=== PATIENT | male | born 1940 | race Caucasian/White ===

== ENCOUNTER 2021-03-22 10:26 | Outpatient (REF) | payer SELFPAY ==
[2021-03-22 11:14] LABS: INTERNATIONAL NORM RATIO 1.8 (0.9-1.1); Prothrombin Time 20.3 SEC (9.9-13.0)
== END 2021-03-22 10:27 | disposition home or self-care (01) ==
LOC: HO.MMNH1L 10:26
PROVIDERS: Visit Provider Family Medicine
DX: I48.91 Unspecified atrial fibrillation (principal)
CPT/HCPCS: 36415; 85610

== ENCOUNTER 2021-04-07 00:56 | Outpatient (REF) | payer SELFPAY | END 2021-04-07 00:57 | disposition home or self-care (01) | LOC: HO.MMNH1L 00:56 | PROVIDERS: Visit Provider Family Medicine | DX: Z13.89 Encounter for screening for other disorder (principal) ==

== ENCOUNTER 2021-10-29 06:22 | Outpatient (REF) | payer SELFPAY ==
[2021-10-29 06:50] LABS: INTERNATIONAL NORM RATIO 1.6 (0.9-1.1); Prothrombin Time 18.4 SEC (9.9-13.0)
== END 2021-10-29 06:23 | disposition home or self-care (01) ==
LOC: HO.MMNH1L 06:22
PROVIDERS: Visit Provider Family Medicine
DX: I48.20 Chronic atrial fibrillation, unspecified (principal); I50.20 Unspecified systolic (congestive) heart failure
CPT/HCPCS: 36415; 85610

== ENCOUNTER 2021-11-24 06:52 | Outpatient (REF) | payer MEDICARE, SELFPAY | END 2021-11-24 06:53 | disposition home or self-care (01) | LOC: HO.MMNH1L 06:52 | PROVIDERS: Visit Provider Family Medicine | DX: Z13.89 Encounter for screening for other disorder (principal) ==

== ENCOUNTER 2021-12-08 07:20 | Outpatient (REF) | payer MEDICARE, SELFPAY | END 2021-12-08 07:21 | disposition home or self-care (01) | LOC: HO.MMNH1L 07:20 | PROVIDERS: Visit Provider Family Medicine | DX: Z13.89 Encounter for screening for other disorder (principal) ==

== ENCOUNTER 2022-02-09 07:28 | Outpatient (REF) | payer MEDICARE, SELFPAY | END 2022-02-09 07:29 | disposition home or self-care (01) | LOC: HO.MMNH1L 07:28 | PROVIDERS: Visit Provider Family Medicine | DX: Z13.89 Encounter for screening for other disorder (principal) ==

== ENCOUNTER 2022-02-23 06:23 | Outpatient (REF) | payer MEDICARE, SELFPAY ==
[2022-02-23 06:49] LABS: Hematocrit 38.5 % (42.0-52.0); Hemoglobin 12.3 g/dl (14.0-18.0); Mean Corpuscular HGB Conc 31.9 g/dl (31.0-36.0); Mean Corpuscular Hemoglobin 31.8 pg (27.0-33.0); Mean Corpuscular Volume 99.5 fL (80.0-98.0); Mean Platelet Volume 9.6 fL (9.4-12.4); Platelet Count 245 X10*3/uL (160-400); Red Blood Count 3.87 X10*6/uL (4.60-5.80); Red Cell Distribution Width 13.7 % (11.0-16.0); White Blood Count 6.6 X10*3/uL (4.8-10.8)
[2022-02-23 06:50] LABS: Prothrombin Time 24.2 SEC (10.0-13.1)
[2022-02-23 07:38] LABS: Anion Gap 17 (12-20); Blood Urea Nitrogen 16 mg/dL (9-16); Calcium 8.4 mg/dL (8.4-10.2); Carbon Dioxide 30 mmol/L (22-29); Chloride 98 mmol/L (96-108); Estimated Glomerular Filt Rate > 60; Glucose Random 92 mg/dL (60-115); Potassium 3.9 mmol/L (3.3-5.1); Sodium 141 mmol/L (135-145)
== END 2022-02-23 06:24 | disposition home or self-care (01) ==
LOC: HO.MMNH1L 06:23
PROVIDERS: Visit Provider Family Medicine
DX: I48.20 Chronic atrial fibrillation, unspecified (principal); I50.20 Unspecified systolic (congestive) heart failure; Z91.81 History of falling
CPT/HCPCS: 36415; 80048; 85027; 85610

== ENCOUNTER 2022-03-02 05:52 | Outpatient (REF) | payer MEDICARE, SELFPAY | END 2022-03-02 05:53 | disposition home or self-care (01) | LOC: HO.MMNH1L 05:52 | PROVIDERS: Visit Provider Family Medicine | DX: Z13.89 Encounter for screening for other disorder (principal) ==

== ENCOUNTER 2022-03-03 05:41 | Outpatient (REF) | payer MEDICARE, SELFPAY ==
[2022-03-03 05:44] LABS: MANUAL DIFF FLAG NO
[2022-03-03 06:01] LABS: Basophils Percent Auto 0.6 % (0-2); Eosinophils Absolute Auto 0.3 X10*3/uL (0.0-0.4); Eosinophils Percent Auto 4.2 % (0-4); Hematocrit 36.6 % (42.0-52.0); Hemoglobin 11.7 g/dl (14.0-18.0); Imm Gran Abs Auto 0.06 X10*3/uL (0.00-0.03); Imm Gran Pct Auto 0.9 % (0.0-0.4); Lymphocytes Absolute Auto 0.5 X10*3/uL (1.2-4.9); Lymphocytes Percent Auto 7.3 % (20-40); Mean Corpuscular Hemoglobin 31.9 pg (27.0-33.0); Mean Corpuscular Volume 99.7 fL (80.0-98.0); Mean Platelet Volume 9.8 fL (9.4-12.4); Monocytes Absolute Auto 0.9 X10*3/uL (0.1-1.2); Monocytes Percent Auto 13.2 % (2-11); Neutrophils Absolute Auto 4.9 x10*3/uL (2.0-8.3); Neutrophils Percent Auto 73.8 % (45-73); Platelet Count 162 X10*3/uL (160-400); Red Blood Count 3.67 X10*6/uL (4.60-5.80); Red Cell Distribution Width 14.1 % (11.0-16.0); White Blood Count 6.6 X10*3/uL (4.8-10.8)
[2022-03-03 06:17] LABS: Anion Gap 16 (12-20); Blood Urea Nitrogen 13 mg/dL (9-16); Calcium 8.4 mg/dL (8.4-10.2); Carbon Dioxide 30 mmol/L (22-29); Chloride 100 mmol/L (96-108); Estimated Glomerular Filt Rate > 60; Glucose Random 138 mg/dL (60-115); Potassium 3.8 mmol/L (3.3-5.1); Sodium 142 mmol/L (135-145)
[2022-03-03 06:26] LABS: INTERNATIONAL NORM RATIO 1.5 (0.9-1.1); Prothrombin Time 17.5 SEC (10.0-13.1)
== END 2022-03-03 05:42 | disposition home or self-care (01) ==
LOC: HO.MMNH1L 05:41
PROVIDERS: Visit Provider Family Medicine
DX: I34.0 Nonrheumatic mitral (valve) insufficiency (principal); I48.20 Chronic atrial fibrillation, unspecified
CPT/HCPCS: 36415; 80048; 85025; 85610

== ENCOUNTER 2022-03-09 06:14 | Outpatient (REF) | payer MEDICARE, SELFPAY ==
[2022-03-09 06:31] LABS: MANUAL DIFF FLAG NO
[2022-03-09 06:47] LABS: Basophils Percent Auto 0.5 % (0-2); Eosinophils Absolute Auto 0.3 X10*3/uL (0.0-0.4); Eosinophils Percent Auto 4.9 % (0-4); Hematocrit 36.9 % (42.0-52.0); Hemoglobin 11.7 g/dl (14.0-18.0); Imm Gran Abs Auto 0.03 X10*3/uL (0.00-0.03); Imm Gran Pct Auto 0.5 % (0.0-0.4); Lymphocytes Absolute Auto 0.7 X10*3/uL (1.2-4.9); Lymphocytes Percent Auto 11.4 % (20-40); Mean Corpuscular HGB Conc 31.7 g/dl (31.0-36.0); Mean Corpuscular Hemoglobin 31.8 pg (27.0-33.0); Mean Corpuscular Volume 100.3 fL (80.0-98.0); Mean Platelet Volume 9.9 fL (9.4-12.4); Monocytes Absolute Auto 0.8 X10*3/uL (0.1-1.2); Monocytes Percent Auto 14.1 % (2-11); Neutrophils Percent Auto 68.6 % (45-73); Platelet Count 159 X10*3/uL (160-400); Red Blood Count 3.68 X10*6/uL (4.60-5.80); Red Cell Distribution Width 13.9 % (11.0-16.0); White Blood Count 5.9 X10*3/uL (4.8-10.8)
[2022-03-09 07:02] LABS: INTERNATIONAL NORM RATIO 1.7 (0.9-1.1); Prothrombin Time 19.9 SEC (10.0-13.1)
[2022-03-09 07:09] LABS: Anion Gap 18 (12-20); Blood Urea Nitrogen 13 mg/dL (9-16); Calcium 8.1 mg/dL (8.4-10.2); Carbon Dioxide 24 mmol/L (22-29); Chloride 102 mmol/L (96-108); Estimated Glomerular Filt Rate > 60; Glucose Random 83 mg/dL (60-115); Potassium 4.2 mmol/L (3.3-5.1); Sodium 140 mmol/L (135-145)
== END 2022-03-09 06:15 | disposition home or self-care (01) ==
LOC: HO.MMNH1L 06:14
PROVIDERS: Visit Provider Family Medicine
DX: I48.20 Chronic atrial fibrillation, unspecified (principal); I50.20 Unspecified systolic (congestive) heart failure; Z91.81 History of falling
CPT/HCPCS: 36415; 80048; 85025; 85610

== ENCOUNTER 2022-03-16 05:44 | Outpatient (REF) | payer MEDICARE, SELFPAY ==
[2022-03-16 05:43] LABS: MANUAL DIFF FLAG NO
[2022-03-16 06:16] LABS: INTERNATIONAL NORM RATIO 1.6 (0.9-1.1); Prothrombin Time 19.2 SEC (10.0-13.1)
[2022-03-16 06:28] LABS: Basophils Absolute Auto 0.1 X10*3/uL (0.0-0.2); Basophils Percent Auto 0.8 % (0-2); Eosinophils Absolute Auto 0.3 X10*3/uL (0.0-0.4); Eosinophils Percent Auto 5.3 % (0-4); Hemoglobin 12.7 g/dl (14.0-18.0); Imm Gran Abs Auto 0.03 X10*3/uL (0.00-0.03); Imm Gran Pct Auto 0.5 % (0.0-0.4); Lymphocytes Absolute Auto 0.9 X10*3/uL (1.2-4.9); Lymphocytes Percent Auto 14.2 % (20-40); Mean Corpuscular HGB Conc 31.8 g/dl (31.0-36.0); Mean Corpuscular Hemoglobin 31.5 pg (27.0-33.0); Mean Corpuscular Volume 99.3 fL (80.0-98.0); Mean Platelet Volume 9.7 fL (9.4-12.4); Monocytes Absolute Auto 0.8 X10*3/uL (0.1-1.2); Monocytes Percent Auto 13.1 % (2-11); Neutrophils Absolute Auto 4.2 x10*3/uL (2.0-8.3); Neutrophils Percent Auto 66.1 % (45-73); Platelet Count 206 X10*3/uL (160-400); Red Blood Count 4.03 X10*6/uL (4.60-5.80); Red Cell Distribution Width 14.1 % (11.0-16.0); White Blood Count 6.4 X10*3/uL (4.8-10.8)
[2022-03-16 07:08] LABS: Anion Gap 21 (12-20); Blood Urea Nitrogen 15 mg/dL (9-16); Calcium 8.6 mg/dL (8.4-10.2); Carbon Dioxide 26 mmol/L (22-29); Chloride 98 mmol/L (96-108); Estimated Glomerular Filt Rate > 60; Glucose Random 100 mg/dL (60-115); Potassium 3.8 mmol/L (3.3-5.1); Sodium 141 mmol/L (135-145)
== END 2022-03-16 05:45 | disposition home or self-care (01) ==
LOC: HO.MMNH1L 05:44
PROVIDERS: Visit Provider Family Medicine
DX: I48.20 Chronic atrial fibrillation, unspecified (principal); I50.20 Unspecified systolic (congestive) heart failure; Z91.81 History of falling
CPT/HCPCS: 36415; 80048; 85025; 85610

== ENCOUNTER 2022-03-21 11:35 | Outpatient (REF) | payer MEDICARE, SELFPAY ==
[2022-03-21 11:57] LABS: Appearance Urine Clear; Color Urine Yellow; Glucose Urine UA Negative (Negative); Leukocyte Esterase Urine Negative (Negative); Nitrite Urine Negative (Negative); PH 6.5 (5.0-9.0); Urine Blood Negative (Negative); Urine Ketones Negative (Negative); Urine Protein Negative (Neg-Trace)
== END 2022-03-21 11:36 | disposition home or self-care (01) ==
LOC: HO.LNP 11:35
PROVIDERS: Visit Provider Family Medicine
DX: R41.0 Disorientation, unspecified (principal); F39 Unspecified mood [affective] disorder
CPT/HCPCS: 81003; 87086

== ENCOUNTER 2022-03-23 06:38 | Outpatient (REF) | payer MEDICARE, SELFPAY ==
[2022-03-23 06:56] LABS: INTERNATIONAL NORM RATIO 1.7 (0.9-1.1); Prothrombin Time 19.7 SEC (10.0-13.1)
[2022-03-23 06:59] LABS: Hematocrit 35.6 % (42.0-52.0); Hemoglobin 11.4 g/dl (14.0-18.0); Mean Corpuscular Hemoglobin 31.8 pg (27.0-33.0); Mean Corpuscular Volume 99.2 fL (80.0-98.0); Mean Platelet Volume 9.9 fL (9.4-12.4); Platelet Count 191 X10*3/uL (160-400); Red Blood Count 3.59 X10*6/uL (4.60-5.80); Red Cell Distribution Width 13.9 % (11.0-16.0)
[2022-03-23 07:34] LABS: Anion Gap 18 (12-20); Blood Urea Nitrogen 17 mg/dL (9-16); Calcium 7.9 mg/dL (8.4-10.2); Carbon Dioxide 26 mmol/L (22-29); Chloride 102 mmol/L (96-108); Estimated Glomerular Filt Rate > 60; Glucose Random 98 mg/dL (60-115); Potassium 3.8 mmol/L (3.3-5.1); Sodium 142 mmol/L (135-145)
== END 2022-03-23 06:39 | disposition home or self-care (01) ==
LOC: HO.MMNH1L 06:38
PROVIDERS: Visit Provider Family Medicine
DX: J81.1 Chronic pulmonary edema (principal); I48.20 Chronic atrial fibrillation, unspecified; I50.20 Unspecified systolic (congestive) heart failure
CPT/HCPCS: 36415; 80048; 85027; 85610

== ENCOUNTER 2022-03-30 06:16 | Outpatient (REF) | payer MEDICARE, SELFPAY ==
[2022-03-30 06:36] LABS: Hematocrit 34.8 % (42.0-52.0); Hemoglobin 11.2 g/dl (14.0-18.0); Mean Corpuscular HGB Conc 32.2 g/dl (31.0-36.0); Mean Corpuscular Hemoglobin 31.5 pg (27.0-33.0); Mean Corpuscular Volume 97.8 fL (80.0-98.0); Mean Platelet Volume 9.8 fL (9.4-12.4); Platelet Count 177 X10*3/uL (160-400); Red Blood Count 3.56 X10*6/uL (4.60-5.80); Red Cell Distribution Width 13.7 % (11.0-16.0); White Blood Count 5.3 X10*3/uL (4.8-10.8)
[2022-03-30 06:44] LABS: INTERNATIONAL NORM RATIO 1.9 (0.9-1.1); Prothrombin Time 21.8 SEC (10.0-13.1)
[2022-03-30 06:54] LABS: Anion Gap 14 (12-20); Blood Urea Nitrogen 16 mg/dL (9-16); Calcium 8.2 mg/dL (8.4-10.2); Carbon Dioxide 31 mmol/L (22-29); Chloride 102 mmol/L (96-108); Estimated Glomerular Filt Rate > 60; Glucose Random 84 mg/dL (60-115); Potassium 3.7 mmol/L (3.3-5.1); Sodium 143 mmol/L (135-145)
== END 2022-03-30 06:17 | disposition home or self-care (01) ==
LOC: HO.MMNH1L 06:16
PROVIDERS: Visit Provider Family Medicine
DX: I48.20 Chronic atrial fibrillation, unspecified (principal); I50.20 Unspecified systolic (congestive) heart failure; Z91.81 History of falling
CPT/HCPCS: 36415; 80048; 85027; 85610

== ENCOUNTER 2022-04-06 07:16 | Outpatient (REF) | payer MEDICARE, SELFPAY ==
[2022-04-06 07:36] LABS: INTERNATIONAL NORM RATIO 2.4 (0.9-1.1); Prothrombin Time 29.1 SEC (10.0-13.1)
[2022-04-06 07:37] LABS: Hematocrit 37.9 % (42.0-52.0); Hemoglobin 11.9 g/dl (14.0-18.0); Mean Corpuscular HGB Conc 31.4 g/dl (31.0-36.0); Mean Corpuscular Volume 98.7 fL (80.0-98.0); Mean Platelet Volume 10.3 fL (9.4-12.4); Platelet Count 164 X10*3/uL (160-400); Red Blood Count 3.84 X10*6/uL (4.60-5.80); Red Cell Distribution Width 13.9 % (11.0-16.0); White Blood Count 6.5 X10*3/uL (4.8-10.8)
[2022-04-06 08:15] LABS: Anion Gap 13 (12-20); Blood Urea Nitrogen 15 mg/dL (9-16); Calcium 8.5 mg/dL (8.4-10.2); Carbon Dioxide 32 mmol/L (22-29); Chloride 98 mmol/L (96-108); Estimated Glomerular Filt Rate > 60; Glucose Random 83 mg/dL (60-115); Sodium 139 mmol/L (135-145)
== END 2022-04-06 07:17 | disposition home or self-care (01) ==
LOC: HO.MMNH1L 07:16
PROVIDERS: Visit Provider Family Medicine
DX: I48.20 Chronic atrial fibrillation, unspecified (principal); I50.20 Unspecified systolic (congestive) heart failure; Z91.81 History of falling
CPT/HCPCS: 36415; 80048; 85027; 85610

== ENCOUNTER 2022-04-13 07:16 | Outpatient (REF) | payer MEDICARE, SELFPAY ==
[2022-04-13 07:09] LABS: MANUAL DIFF FLAG NO
[2022-04-13 07:50] LABS: Basophils Percent Auto 0.6 % (0-2); Eosinophils Absolute Auto 0.3 X10*3/uL (0.0-0.4); Eosinophils Percent Auto 5.2 % (0-4); Hemoglobin 11.5 g/dl (14.0-18.0); Imm Gran Abs Auto 0.03 X10*3/uL (0.00-0.03); Imm Gran Pct Auto 0.5 % (0.0-0.4); Lymphocytes Absolute Auto 0.8 X10*3/uL (1.2-4.9); Lymphocytes Percent Auto 12.2 % (20-40); Mean Corpuscular HGB Conc 31.9 g/dl (31.0-36.0); Mean Corpuscular Hemoglobin 31.2 pg (27.0-33.0); Mean Corpuscular Volume 97.6 fL (80.0-98.0); Monocytes Absolute Auto 0.9 X10*3/uL (0.1-1.2); Monocytes Percent Auto 13.8 % (2-11); Neutrophils Absolute Auto 4.2 x10*3/uL (2.0-8.3); Neutrophils Percent Auto 67.7 % (45-73); Platelet Count 189 X10*3/uL (160-400); Red Blood Count 3.69 X10*6/uL (4.60-5.80); Red Cell Distribution Width 14.1 % (11.0-16.0); White Blood Count 6.2 X10*3/uL (4.8-10.8)
[2022-04-13 07:53] LABS: INTERNATIONAL NORM RATIO 3.1 (0.9-1.1)
[2022-04-13 08:18] LABS: Anion Gap 12 (12-20); Blood Urea Nitrogen 17 mg/dL (9-16); Calcium 8.3 mg/dL (8.4-10.2); Carbon Dioxide 34 mmol/L (22-29); Chloride 101 mmol/L (96-108); Estimated Glomerular Filt Rate > 60; Glucose Random 90 mg/dL (60-115); Sodium 143 mmol/L (135-145)
== END 2022-04-13 07:17 | disposition home or self-care (01) ==
LOC: HO.MMNH1L 07:16
PROVIDERS: Visit Provider Family Medicine
DX: I48.20 Chronic atrial fibrillation, unspecified (principal); I50.20 Unspecified systolic (congestive) heart failure; Z91.81 History of falling
CPT/HCPCS: 36415; 80048; 85025; 85610

== ENCOUNTER 2022-04-15 20:45 | Outpatient (REF) | payer MEDICARE, SELFPAY ==
[2022-04-15 20:52] LABS: MANUAL DIFF FLAG NO
[2022-04-15 20:55] LABS: Basophils Percent Auto 0.4 % (0-2); Eosinophils Absolute Auto 0.3 X10*3/uL (0.0-0.4); Eosinophils Percent Auto 3.3 % (0-4); Hematocrit 35.5 % (42.0-52.0); Hemoglobin 11.5 g/dl (14.0-18.0); Imm Gran Abs Auto 0.04 X10*3/uL (0.00-0.03); Imm Gran Pct Auto 0.5 % (0.0-0.4); Lymphocytes Absolute Auto 0.6 X10*3/uL (1.2-4.9); Lymphocytes Percent Auto 7.3 % (20-40); Mean Corpuscular HGB Conc 32.4 g/dl (31.0-36.0); Mean Corpuscular Hemoglobin 30.6 pg (27.0-33.0); Mean Corpuscular Volume 94.4 fL (80.0-98.0); Mean Platelet Volume 9.5 fL (9.4-12.4); Monocytes Percent Auto 12.2 % (2-11); Neutrophils Percent Auto 76.3 % (45-73); Platelet Count 197 X10*3/uL (160-400); Red Blood Count 3.76 X10*6/uL (4.60-5.80); White Blood Count 7.9 X10*3/uL (4.8-10.8)
[2022-04-15 21:08] LABS: Anion Gap 13 (12-20); Blood Urea Nitrogen 17 mg/dL (9-16); Calcium 8.2 mg/dL (8.4-10.2); Carbon Dioxide 30 mmol/L (22-29); Chloride 98 mmol/L (96-108); Estimated Glomerular Filt Rate > 60; Glucose Random 120 mg/dL (60-115); Potassium 3.6 mmol/L (3.3-5.1); Sodium 137 mmol/L (135-145)
== END 2022-04-15 20:46 | disposition home or self-care (01) ==
LOC: HO.MMNH1L 20:45
PROVIDERS: Visit Provider Family Medicine
DX: N02.2 Recurrent and persistent hematuria with diffuse membranous glomerulonephritis (principal)
CPT/HCPCS: 36415; 80048; 85025

== ENCOUNTER 2022-04-16 10:11 | Outpatient (REF) | payer MEDICARE, SELFPAY ==
[2022-04-16 06:16] LABS: Appearance Urine Clear; Color Urine Yellow; Glucose Urine UA Negative (Negative); Leukocyte Esterase Urine Negative (Negative); Nitrite Urine Negative (Negative); PH 5.5 (5.0-9.0); Specific Gravity - Urine <= 1.005 (1.005-1.025); Urine Blood Negative (Negative); Urine Ketones Negative (Negative); Urine Protein Negative (Neg-Trace)
[2022-04-16 06:19] LABS: INTERNATIONAL NORM RATIO 2.4 (0.9-1.1); Prothrombin Time 28.2 SEC (10.0-13.1)
== END 2022-04-16 10:12 | disposition home or self-care (01) ==
LOC: HO.MMNH1L 10:11
PROVIDERS: Visit Provider Family Medicine
DX: I48.91 Unspecified atrial fibrillation (principal)
CPT/HCPCS: 36415; 81003; 85610; 87086

== ENCOUNTER 2022-04-20 07:53 | Outpatient (REF) | payer MEDICARE, SELFPAY ==
[2022-04-20 07:10] LABS: MANUAL DIFF FLAG NO
[2022-04-20 07:52] LABS: INTERNATIONAL NORM RATIO 2.7 (0.9-1.1)
[2022-04-20 07:53] LABS: Basophils Percent Auto 0.5 % (0-2); Eosinophils Absolute Auto 0.2 X10*3/uL (0.0-0.4); Eosinophils Percent Auto 3.4 % (0-4); Hematocrit 34.4 % (42.0-52.0); Hemoglobin 11.1 g/dl (14.0-18.0); Imm Gran Abs Auto 0.03 X10*3/uL (0.00-0.03); Imm Gran Pct Auto 0.5 % (0.0-0.4); Lymphocytes Absolute Auto 0.5 X10*3/uL (1.2-4.9); Mean Corpuscular HGB Conc 32.3 g/dl (31.0-36.0); Mean Corpuscular Hemoglobin 30.9 pg (27.0-33.0); Mean Corpuscular Volume 95.8 fL (80.0-98.0); Mean Platelet Volume 9.9 fL (9.4-12.4); Monocytes Absolute Auto 0.9 X10*3/uL (0.1-1.2); Monocytes Percent Auto 14.9 % (2-11); Neutrophils Absolute Auto 4.3 x10*3/uL (2.0-8.3); Neutrophils Percent Auto 71.7 % (45-73); Platelet Count 179 X10*3/uL (160-400); Red Blood Count 3.59 X10*6/uL (4.60-5.80); Red Cell Distribution Width 14.2 % (11.0-16.0)
[2022-04-20 08:12] LABS: Anion Gap 12 (12-20); Blood Urea Nitrogen 15 mg/dL (9-16); Calcium 8.4 mg/dL (8.4-10.2); Carbon Dioxide 31 mmol/L (22-29); Chloride 101 mmol/L (96-108); Estimated Glomerular Filt Rate > 60; Glucose Random 91 mg/dL (60-115); Potassium 3.4 mmol/L (3.3-5.1); Sodium 141 mmol/L (135-145)
== END 2022-04-20 07:54 | disposition home or self-care (01) ==
LOC: HO.MMNH1L 07:53
PROVIDERS: Visit Provider Family Medicine
DX: I48.20 Chronic atrial fibrillation, unspecified (principal); I50.20 Unspecified systolic (congestive) heart failure; Z91.81 History of falling
CPT/HCPCS: 36415; 80048; 85025; 85610

== ENCOUNTER 2022-04-27 06:54 | Outpatient (REF) | payer MEDICARE, SELFPAY ==
[2022-04-27 06:40] LABS: MANUAL DIFF FLAG NO
[2022-04-27 07:26] LABS: Basophils Percent Auto 0.6 % (0-2); Eosinophils Absolute Auto 0.3 X10*3/uL (0.0-0.4); Eosinophils Percent Auto 4.3 % (0-4); Hematocrit 37.3 % (42.0-52.0); Hemoglobin 11.8 g/dl (14.0-18.0); Imm Gran Abs Auto 0.03 X10*3/uL (0.00-0.03); Imm Gran Pct Auto 0.4 % (0.0-0.4); Lymphocytes Absolute Auto 0.8 X10*3/uL (1.2-4.9); Lymphocytes Percent Auto 11.4 % (20-40); Mean Corpuscular HGB Conc 31.6 g/dl (31.0-36.0); Mean Corpuscular Hemoglobin 30.5 pg (27.0-33.0); Mean Corpuscular Volume 96.4 fL (80.0-98.0); Mean Platelet Volume 9.7 fL (9.4-12.4); Monocytes Percent Auto 13.8 % (2-11); Neutrophils Absolute Auto 4.8 x10*3/uL (2.0-8.3); Neutrophils Percent Auto 69.5 % (45-73); Platelet Count 188 X10*3/uL (160-400); Red Blood Count 3.87 X10*6/uL (4.60-5.80); Red Cell Distribution Width 14.2 % (11.0-16.0); White Blood Count 6.9 X10*3/uL (4.8-10.8)
[2022-04-27 07:29] LABS: INTERNATIONAL NORM RATIO 2.3 (0.9-1.1); Prothrombin Time 27.7 SEC (10.0-13.1)
[2022-04-27 07:42] LABS: Anion Gap 17 (12-20); Blood Urea Nitrogen 17 mg/dL (9-16); Calcium 8.3 mg/dL (8.4-10.2); Carbon Dioxide 29 mmol/L (22-29); Chloride 101 mmol/L (96-108); Estimated Glomerular Filt Rate > 60; Glucose Random 96 mg/dL (60-115); Potassium 3.7 mmol/L (3.3-5.1); Sodium 143 mmol/L (135-145)
== END 2022-04-27 06:55 | disposition home or self-care (01) ==
LOC: HO.MMNH1L 06:54
PROVIDERS: Visit Provider Family Medicine
DX: I48.20 Chronic atrial fibrillation, unspecified (principal); I50.20 Unspecified systolic (congestive) heart failure; Z91.81 History of falling
CPT/HCPCS: 36415; 80048; 85025; 85610

== ENCOUNTER 2022-05-04 06:31 | Outpatient (REF) | payer MEDICARE, SELFPAY ==
[2022-05-04 06:29] LABS: MANUAL DIFF FLAG NO
[2022-05-04 07:03] LABS: Basophils Percent Auto 0.6 % (0-2); Eosinophils Absolute Auto 0.4 X10*3/uL (0.0-0.4); Eosinophils Percent Auto 5.1 % (0-4); Hematocrit 39.2 % (42.0-52.0); Hemoglobin 12.3 g/dl (14.0-18.0); Imm Gran Abs Auto 0.04 X10*3/uL (0.00-0.03); Imm Gran Pct Auto 0.6 % (0.0-0.4); Lymphocytes Absolute Auto 0.8 X10*3/uL (1.2-4.9); Lymphocytes Percent Auto 11.4 % (20-40); Mean Corpuscular HGB Conc 31.4 g/dl (31.0-36.0); Mean Corpuscular Hemoglobin 29.9 pg (27.0-33.0); Mean Corpuscular Volume 95.4 fL (80.0-98.0); Mean Platelet Volume 9.3 fL (9.4-12.4); Monocytes Percent Auto 13.9 % (2-11); Neutrophils Absolute Auto 4.7 x10*3/uL (2.0-8.3); Neutrophils Percent Auto 68.4 % (45-73); Platelet Count 199 X10*3/uL (160-400); Red Blood Count 4.11 X10*6/uL (4.60-5.80); White Blood Count 6.8 X10*3/uL (4.8-10.8)
[2022-05-04 07:09] LABS: INTERNATIONAL NORM RATIO 2.9 (0.9-1.1); Prothrombin Time 34.5 SEC (10.0-13.1)
[2022-05-04 07:32] LABS: Anion Gap 13 (12-20); Blood Urea Nitrogen 19 mg/dL (9-16); Calcium 8.5 mg/dL (8.4-10.2); Carbon Dioxide 33 mmol/L (22-29); Chloride 101 mmol/L (96-108); Estimated Glomerular Filt Rate > 60; Glucose Random 98 mg/dL (60-115); Potassium 3.7 mmol/L (3.3-5.1); Sodium 143 mmol/L (135-145)
== END 2022-05-04 06:32 | disposition home or self-care (01) ==
LOC: HO.MMNH1L 06:31
PROVIDERS: Visit Provider Family Medicine
DX: I48.20 Chronic atrial fibrillation, unspecified (principal); I50.20 Unspecified systolic (congestive) heart failure; Z91.81 History of falling
CPT/HCPCS: 36415; 80048; 85025; 85610

== ENCOUNTER 2022-05-11 06:26 | Outpatient (REF) | payer MEDICARE, SELFPAY ==
[2022-05-11 06:23] LABS: MANUAL DIFF FLAG NO
[2022-05-11 06:36] LABS: Basophils Percent Auto 0.5 % (0-2); Eosinophils Absolute Auto 0.4 X10*3/uL (0.0-0.4); Eosinophils Percent Auto 5.2 % (0-4); Hematocrit 38.2 % (42.0-52.0); Hemoglobin 12.3 g/dl (14.0-18.0); Imm Gran Abs Auto 0.05 X10*3/uL (0.00-0.03); Imm Gran Pct Auto 0.7 % (0.0-0.4); Lymphocytes Absolute Auto 0.8 X10*3/uL (1.2-4.9); Lymphocytes Percent Auto 11.1 % (20-40); Mean Corpuscular HGB Conc 32.2 g/dl (31.0-36.0); Mean Corpuscular Hemoglobin 30.5 pg (27.0-33.0); Mean Corpuscular Volume 94.8 fL (80.0-98.0); Mean Platelet Volume 9.9 fL (9.4-12.4); Monocytes Absolute Auto 1.1 X10*3/uL (0.1-1.2); Monocytes Percent Auto 14.4 % (2-11); Neutrophils Absolute Auto 5.1 x10*3/uL (2.0-8.3); Neutrophils Percent Auto 68.1 % (45-73); Platelet Count 187 X10*3/uL (160-400); Red Blood Count 4.03 X10*6/uL (4.60-5.80); Red Cell Distribution Width 14.2 % (11.0-16.0); White Blood Count 7.5 X10*3/uL (4.8-10.8)
[2022-05-11 06:38] LABS: INTERNATIONAL NORM RATIO 2.1 (0.9-1.1); Prothrombin Time 25.4 SEC (10.0-13.1)
[2022-05-11 07:10] LABS: Anion Gap 14 (12-20); Blood Urea Nitrogen 16 mg/dL (9-16); Calcium 8.2 mg/dL (8.4-10.2); Carbon Dioxide 32 mmol/L (22-29); Chloride 102 mmol/L (96-108); Estimated Glomerular Filt Rate > 60; Glucose Random 97 mg/dL (60-115); Potassium 3.5 mmol/L (3.3-5.1); Sodium 144 mmol/L (135-145)
== END 2022-05-11 06:27 | disposition home or self-care (01) ==
LOC: HO.MMNH1L 06:26
PROVIDERS: Visit Provider Family Medicine
DX: I48.20 Chronic atrial fibrillation, unspecified (principal); I50.20 Unspecified systolic (congestive) heart failure; Z91.81 History of falling
CPT/HCPCS: 36415; 80048; 85025; 85610

== ENCOUNTER 2022-05-18 05:52 | Outpatient (REF) | payer MEDICARE, SELFPAY ==
[2022-05-18 05:52] LABS: MANUAL DIFF FLAG NO
[2022-05-18 06:11] LABS: Basophils Percent Auto 0.6 % (0-2); Eosinophils Absolute Auto 0.3 X10*3/uL (0.0-0.4); Eosinophils Percent Auto 4.5 % (0-4); Hematocrit 38.1 % (42.0-52.0); Hemoglobin 12.2 g/dl (14.0-18.0); Imm Gran Abs Auto 0.05 X10*3/uL (0.00-0.03); Imm Gran Pct Auto 0.7 % (0.0-0.4); Lymphocytes Absolute Auto 0.8 X10*3/uL (1.2-4.9); Lymphocytes Percent Auto 11.3 % (20-40); Mean Corpuscular Hemoglobin 30.4 pg (27.0-33.0); Mean Platelet Volume 9.8 fL (9.4-12.4); Neutrophils Absolute Auto 4.9 x10*3/uL (2.0-8.3); Neutrophils Percent Auto 68.9 % (45-73); Platelet Count 183 X10*3/uL (160-400); Red Blood Count 4.01 X10*6/uL (4.60-5.80); Red Cell Distribution Width 14.3 % (11.0-16.0); White Blood Count 7.1 X10*3/uL (4.8-10.8)
[2022-05-18 06:35] LABS: Anion Gap 15 (12-20); Blood Urea Nitrogen 21 mg/dL (9-16); Calcium 8.2 mg/dL (8.4-10.2); Carbon Dioxide 30 mmol/L (22-29); Chloride 100 mmol/L (96-108); Estimated Glomerular Filt Rate > 60; Glucose Random 95 mg/dL (60-115); Potassium 3.5 mmol/L (3.3-5.1); Sodium 141 mmol/L (135-145)
[2022-05-18 06:53] LABS: INTERNATIONAL NORM RATIO 2.2 (0.9-1.1); Prothrombin Time 25.6 SEC (10.0-13.1)
== END 2022-05-18 05:53 | disposition home or self-care (01) ==
LOC: HO.MMNH1L 05:52
PROVIDERS: Visit Provider Family Medicine
DX: I48.20 Chronic atrial fibrillation, unspecified (principal); I50.20 Unspecified systolic (congestive) heart failure; Z91.81 History of falling
CPT/HCPCS: 36415; 80048; 85025; 85610

== ENCOUNTER 2022-05-25 06:40 | Outpatient (REF) | payer MEDICARE, SELFPAY ==
[2022-05-25 06:23] LABS: MANUAL DIFF FLAG NO
[2022-05-25 06:58] LABS: INTERNATIONAL NORM RATIO 1.7 (0.9-1.1); Prothrombin Time 20.2 SEC (10.0-13.1)
[2022-05-25 07:11] LABS: Basophils Percent Auto 0.6 % (0-2); Eosinophils Absolute Auto 0.3 X10*3/uL (0.0-0.4); Eosinophils Percent Auto 4.8 % (0-4); Hemoglobin 11.4 g/dl (14.0-18.0); Imm Gran Abs Auto 0.05 X10*3/uL (0.00-0.03); Imm Gran Pct Auto 0.8 % (0.0-0.4); Lymphocytes Absolute Auto 0.8 X10*3/uL (1.2-4.9); Lymphocytes Percent Auto 12.2 % (20-40); Mean Corpuscular HGB Conc 32.6 g/dl (31.0-36.0); Mean Corpuscular Hemoglobin 30.9 pg (27.0-33.0); Mean Corpuscular Volume 94.9 fL (80.0-98.0); Mean Platelet Volume 10.1 fL (9.4-12.4); Monocytes Absolute Auto 0.8 X10*3/uL (0.1-1.2); Monocytes Percent Auto 12.5 % (2-11); Neutrophils Absolute Auto 4.5 x10*3/uL (2.0-8.3); Neutrophils Percent Auto 69.1 % (45-73); Platelet Count 166 X10*3/uL (160-400); Red Blood Count 3.69 X10*6/uL (4.60-5.80); Red Cell Distribution Width 14.4 % (11.0-16.0); White Blood Count 6.5 X10*3/uL (4.8-10.8)
[2022-05-25 07:21] LABS: Anion Gap 15 (12-20); Blood Urea Nitrogen 25 mg/dL (9-16); Calcium 8.3 mg/dL (8.4-10.2); Carbon Dioxide 29 mmol/L (22-29); Chloride 100 mmol/L (96-108); Estimated Glomerular Filt Rate > 60; Glucose Random 90 mg/dL (60-115); Potassium 3.6 mmol/L (3.3-5.1); Sodium 140 mmol/L (135-145)
== END 2022-05-25 06:41 | disposition home or self-care (01) ==
LOC: HO.MMNH1L 06:40
PROVIDERS: Visit Provider Family Medicine
DX: I48.20 Chronic atrial fibrillation, unspecified (principal); I50.20 Unspecified systolic (congestive) heart failure; Z91.81 History of falling
CPT/HCPCS: 36415; 80048; 85025; 85610

== ENCOUNTER 2022-06-01 06:45 | Outpatient (REF) | payer MEDICARE, SELFPAY ==
[2022-06-01 06:27] LABS: MANUAL DIFF FLAG NO
[2022-06-01 07:10] LABS: INTERNATIONAL NORM RATIO 2.3 (0.9-1.1); Prothrombin Time 27.5 SEC (10.0-13.1)
[2022-06-01 07:26] LABS: Basophils Percent Auto 0.6 % (0-2); Eosinophils Absolute Auto 0.4 X10*3/uL (0.0-0.4); Eosinophils Percent Auto 5.5 % (0-4); Hematocrit 37.5 % (42.0-52.0); Imm Gran Abs Auto 0.04 X10*3/uL (0.00-0.03); Imm Gran Pct Auto 0.6 % (0.0-0.4); Lymphocytes Absolute Auto 0.8 X10*3/uL (1.2-4.9); Lymphocytes Percent Auto 11.5 % (20-40); Mean Corpuscular Hemoglobin 30.7 pg (27.0-33.0); Mean Corpuscular Volume 95.9 fL (80.0-98.0); Monocytes Absolute Auto 0.9 X10*3/uL (0.1-1.2); Monocytes Percent Auto 13.1 % (2-11); Neutrophils Absolute Auto 4.5 x10*3/uL (2.0-8.3); Neutrophils Percent Auto 68.7 % (45-73); Platelet Count 194 X10*3/uL (160-400); Red Blood Count 3.91 X10*6/uL (4.60-5.80); Red Cell Distribution Width 14.6 % (11.0-16.0); White Blood Count 6.6 X10*3/uL (4.8-10.8)
[2022-06-01 07:35] LABS: Anion Gap 16 (12-20); Blood Urea Nitrogen 22 mg/dL (9-16); Calcium 8.4 mg/dL (8.4-10.2); Carbon Dioxide 30 mmol/L (22-29); Chloride 100 mmol/L (96-108); Estimated Glomerular Filt Rate > 60; Glucose Random 101 mg/dL (60-115); Sodium 142 mmol/L (135-145)
== END 2022-06-01 06:46 | disposition home or self-care (01) ==
LOC: HO.MMNH1L 06:45
PROVIDERS: Visit Provider Family Medicine
DX: I48.20 Chronic atrial fibrillation, unspecified (principal); I50.20 Unspecified systolic (congestive) heart failure; Z91.81 History of falling
CPT/HCPCS: 36415; 80048; 85025; 85610

== ENCOUNTER 2022-06-08 07:10 | Outpatient (REF) | payer MEDICARE, SELFPAY ==
[2022-06-08 06:51] LABS: MANUAL DIFF FLAG NO
[2022-06-08 07:33] LABS: INTERNATIONAL NORM RATIO 2.3 (0.9-1.1); Prothrombin Time 27.7 SEC (10.0-13.1)
[2022-06-08 07:37] LABS: Basophils Percent Auto 0.6 % (0-2); Eosinophils Absolute Auto 0.4 X10*3/uL (0.0-0.4); Eosinophils Percent Auto 5.1 % (0-4); Imm Gran Abs Auto 0.04 X10*3/uL (0.00-0.03); Imm Gran Pct Auto 0.6 % (0.0-0.4); Lymphocytes Absolute Auto 0.7 X10*3/uL (1.2-4.9); Lymphocytes Percent Auto 10.6 % (20-40); Mean Corpuscular HGB Conc 31.6 g/dl (31.0-36.0); Mean Corpuscular Hemoglobin 30.2 pg (27.0-33.0); Mean Corpuscular Volume 95.5 fL (80.0-98.0); Mean Platelet Volume 9.7 fL (9.4-12.4); Monocytes Absolute Auto 1.1 X10*3/uL (0.1-1.2); Monocytes Percent Auto 15.3 % (2-11); Neutrophils Absolute Auto 4.7 x10*3/uL (2.0-8.3); Neutrophils Percent Auto 67.8 % (45-73); Platelet Count 185 X10*3/uL (160-400); Red Blood Count 3.98 X10*6/uL (4.60-5.80); Red Cell Distribution Width 14.7 % (11.0-16.0); White Blood Count 6.9 X10*3/uL (4.8-10.8)
[2022-06-08 08:34] LABS: Anion Gap 16 (12-20); Blood Urea Nitrogen 18 mg/dL (9-16); Calcium 8.4 mg/dL (8.4-10.2); Carbon Dioxide 30 mmol/L (22-29); Chloride 101 mmol/L (96-108); Estimated Glomerular Filt Rate > 60; Glucose Random 85 mg/dL (60-115); Potassium 4.3 mmol/L (3.3-5.1); Sodium 143 mmol/L (135-145)
== END 2022-06-08 07:11 | disposition home or self-care (01) ==
LOC: HO.MMNH1L 07:10
PROVIDERS: Visit Provider Family Medicine
DX: I48.20 Chronic atrial fibrillation, unspecified (principal); I50.20 Unspecified systolic (congestive) heart failure; Z91.81 History of falling
CPT/HCPCS: 36415; 80048; 85025; 85610

== ENCOUNTER 2022-06-15 07:19 | Outpatient (REF) | payer MEDICARE, SELFPAY ==
[2022-06-15 06:36] LABS: MANUAL DIFF FLAG NO
[2022-06-15 07:05] LABS: Basophils Absolute Auto 0.1 X10*3/uL (0.0-0.2); Basophils Percent Auto 0.7 % (0-2); Eosinophils Absolute Auto 0.3 X10*3/uL (0.0-0.4); Eosinophils Percent Auto 4.1 % (0-4); Hematocrit 40.1 % (42.0-52.0); Hemoglobin 12.5 g/dl (14.0-18.0); Imm Gran Abs Auto 0.05 X10*3/uL (0.00-0.03); Imm Gran Pct Auto 0.6 % (0.0-0.4); Lymphocytes Percent Auto 12.4 % (20-40); Mean Corpuscular HGB Conc 31.2 g/dl (31.0-36.0); Mean Corpuscular Hemoglobin 29.6 pg (27.0-33.0); Mean Corpuscular Volume 94.8 fL (80.0-98.0); Mean Platelet Volume 9.9 fL (9.4-12.4); Monocytes Absolute Auto 1.1 X10*3/uL (0.1-1.2); Monocytes Percent Auto 13.1 % (2-11); Neutrophils Absolute Auto 5.6 x10*3/uL (2.0-8.3); Neutrophils Percent Auto 69.1 % (45-73); Platelet Count 218 X10*3/uL (160-400); Red Blood Count 4.23 X10*6/uL (4.60-5.80); Red Cell Distribution Width 14.9 % (11.0-16.0); White Blood Count 8.1 X10*3/uL (4.8-10.8)
[2022-06-15 07:13] LABS: INTERNATIONAL NORM RATIO 2.1 (0.9-1.1); Prothrombin Time 25.1 SEC (10.0-13.1)
[2022-06-15 07:28] LABS: Anion Gap 18 (12-20); Blood Urea Nitrogen 20 mg/dL (9-16); Calcium 8.6 mg/dL (8.4-10.2); Carbon Dioxide 29 mmol/L (22-29); Chloride 99 mmol/L (96-108); Estimated Glomerular Filt Rate > 60; Glucose Random 120 mg/dL (60-115); Potassium 3.6 mmol/L (3.3-5.1); Sodium 142 mmol/L (135-145)
== END 2022-06-15 07:20 | disposition home or self-care (01) ==
LOC: HO.MMNH1L 07:19
PROVIDERS: Visit Provider Family Medicine
DX: I48.20 Chronic atrial fibrillation, unspecified (principal); I50.20 Unspecified systolic (congestive) heart failure; Z91.81 History of falling
CPT/HCPCS: 36415; 80048; 85025; 85610

== ENCOUNTER 2022-06-22 06:39 | Outpatient (REF) | payer MEDICARE, SELFPAY ==
[2022-06-22 06:25] LABS: MANUAL DIFF FLAG NO
[2022-06-22 07:25] LABS: Basophils Percent Auto 0.6 % (0-2); Eosinophils Absolute Auto 0.5 X10*3/uL (0.0-0.4); Eosinophils Percent Auto 7.1 % (0-4); Hematocrit 36.8 % (42.0-52.0); Hemoglobin 11.7 g/dl (14.0-18.0); Imm Gran Abs Auto 0.05 X10*3/uL (0.00-0.03); Imm Gran Pct Auto 0.7 % (0.0-0.4); Lymphocytes Absolute Auto 0.8 X10*3/uL (1.2-4.9); Lymphocytes Percent Auto 11.1 % (20-40); Mean Corpuscular HGB Conc 31.8 g/dl (31.0-36.0); Mean Corpuscular Hemoglobin 30.5 pg (27.0-33.0); Mean Corpuscular Volume 96.1 fL (80.0-98.0); Mean Platelet Volume 9.9 fL (9.4-12.4); Monocytes Percent Auto 14.1 % (2-11); Neutrophils Absolute Auto 4.8 x10*3/uL (2.0-8.3); Neutrophils Percent Auto 66.4 % (45-73); Platelet Count 178 X10*3/uL (160-400); Red Blood Count 3.83 X10*6/uL (4.60-5.80); White Blood Count 7.2 X10*3/uL (4.8-10.8)
[2022-06-22 07:27] LABS: INTERNATIONAL NORM RATIO 1.9 (0.9-1.1); Prothrombin Time 22.7 SEC (10.0-13.1)
[2022-06-22 07:57] LABS: Anion Gap 16 (12-20); Blood Urea Nitrogen 16 mg/dL (9-16); Calcium 8.3 mg/dL (8.4-10.2); Carbon Dioxide 31 mmol/L (22-29); Chloride 102 mmol/L (96-108); Estimated Glomerular Filt Rate > 60; Glucose Random 96 mg/dL (60-115); Potassium 3.6 mmol/L (3.3-5.1); Sodium 145 mmol/L (135-145)
== END 2022-06-22 06:40 | disposition home or self-care (01) ==
LOC: HO.MMNH1L 06:39
PROVIDERS: Visit Provider Family Medicine
DX: I48.20 Chronic atrial fibrillation, unspecified (principal); I50.20 Unspecified systolic (congestive) heart failure; Z91.81 History of falling
CPT/HCPCS: 36415; 80048; 85025; 85610

== ENCOUNTER 2022-06-29 07:08 | Outpatient (REF) | payer MEDICARE, SELFPAY ==
[2022-06-29 06:28] LABS: MANUAL DIFF FLAG NO
[2022-06-29 07:04] LABS: INTERNATIONAL NORM RATIO 2.6 (0.9-1.1); Prothrombin Time 31.2 SEC (10.0-13.1)
[2022-06-29 07:05] LABS: Basophils Absolute Auto 0.1 X10*3/uL (0.0-0.2); Eosinophils Absolute Auto 0.4 X10*3/uL (0.0-0.4); Eosinophils Percent Auto 7.3 % (0-4); Hematocrit 34.1 % (42.0-52.0); Imm Gran Abs Auto 0.05 X10*3/uL (0.00-0.03); Imm Gran Pct Auto 0.9 % (0.0-0.4); Lymphocytes Absolute Auto 0.8 X10*3/uL (1.2-4.9); Lymphocytes Percent Auto 13.7 % (20-40); Mean Corpuscular HGB Conc 32.3 g/dl (31.0-36.0); Mean Corpuscular Hemoglobin 30.8 pg (27.0-33.0); Mean Corpuscular Volume 95.5 fL (80.0-98.0); Mean Platelet Volume 9.9 fL (9.4-12.4); Monocytes Absolute Auto 0.8 X10*3/uL (0.1-1.2); Neutrophils Absolute Auto 3.7 x10*3/uL (2.0-8.3); Neutrophils Percent Auto 64.1 % (45-73); Platelet Count 180 X10*3/uL (160-400); Red Blood Count 3.57 X10*6/uL (4.60-5.80); Red Cell Distribution Width 14.9 % (11.0-16.0); White Blood Count 5.8 X10*3/uL (4.8-10.8)
[2022-06-29 07:33] LABS: Anion Gap 12 (12-20); Blood Urea Nitrogen 19 mg/dL (9-16); Calcium 8.2 mg/dL (8.4-10.2); Carbon Dioxide 32 mmol/L (22-29); Chloride 101 mmol/L (96-108); Estimated Glomerular Filt Rate > 60; Glucose Random 91 mg/dL (60-115); Sodium 141 mmol/L (135-145)
== END 2022-06-29 07:09 | disposition home or self-care (01) ==
LOC: HO.MMNH1L 07:08
PROVIDERS: Visit Provider Family Medicine
DX: J81.1 Chronic pulmonary edema (principal); I48.20 Chronic atrial fibrillation, unspecified; I50.20 Unspecified systolic (congestive) heart failure
CPT/HCPCS: 36415; 80048; 85025; 85610

== ENCOUNTER 2022-07-06 06:12 | Outpatient (REF) | payer MEDICARE, SELFPAY ==
[2022-07-06 06:02] LABS: MANUAL DIFF FLAG NO
[2022-07-06 06:15] LABS: INTERNATIONAL NORM RATIO 2.2 (0.9-1.1); Prothrombin Time 25.9 SEC (10.0-13.1)
[2022-07-06 06:24] LABS: Anion Gap 14 (12-20); Blood Urea Nitrogen 16 mg/dL (9-16); Calcium 8.5 mg/dL (8.4-10.2); Carbon Dioxide 32 mmol/L (22-29); Chloride 102 mmol/L (96-108); Estimated Glomerular Filt Rate > 60; Glucose Random 98 mg/dL (60-115); Potassium 4.2 mmol/L (3.3-5.1); Sodium 144 mmol/L (135-145)
[2022-07-06 06:35] LABS: Basophils Absolute Auto 0.1 X10*3/uL (0.0-0.2); Basophils Percent Auto 0.8 % (0-2); Eosinophils Absolute Auto 0.4 X10*3/uL (0.0-0.4); Eosinophils Percent Auto 6.2 % (0-4); Hematocrit 37.1 % (42.0-52.0); Hemoglobin 11.6 g/dl (14.0-18.0); Imm Gran Abs Auto 0.04 X10*3/uL (0.00-0.03); Imm Gran Pct Auto 0.6 % (0.0-0.4); Lymphocytes Absolute Auto 0.7 X10*3/uL (1.2-4.9); Lymphocytes Percent Auto 11.5 % (20-40); Mean Corpuscular HGB Conc 31.3 g/dl (31.0-36.0); Mean Corpuscular Hemoglobin 30.1 pg (27.0-33.0); Mean Corpuscular Volume 96.4 fL (80.0-98.0); Mean Platelet Volume 9.8 fL (9.4-12.4); Monocytes Absolute Auto 0.9 X10*3/uL (0.1-1.2); Monocytes Percent Auto 14.7 % (2-11); Neutrophils Absolute Auto 4.2 x10*3/uL (2.0-8.3); Neutrophils Percent Auto 66.2 % (45-73); Platelet Count 191 X10*3/uL (160-400); Red Blood Count 3.85 X10*6/uL (4.60-5.80); White Blood Count 6.3 X10*3/uL (4.8-10.8)
== END 2022-07-06 06:13 | disposition home or self-care (01) ==
LOC: HO.MMNH1L 06:12
PROVIDERS: Visit Provider Family Medicine
DX: I48.20 Chronic atrial fibrillation, unspecified (principal); I50.20 Unspecified systolic (congestive) heart failure; Z91.81 History of falling
CPT/HCPCS: 36415; 80048; 85025; 85610

== ENCOUNTER 2022-07-13 06:52 | Outpatient (REF) | payer MEDICARE, SELFPAY ==
[2022-07-13 06:56] LABS: INTERNATIONAL NORM RATIO 1.2 (0.9-1.1); Prothrombin Time 14.2 SEC (10.0-13.1)
== END 2022-07-13 06:53 | disposition home or self-care (01) ==
LOC: HO.MMNH1L 06:52
PROVIDERS: Visit Provider Family Medicine
DX: J81.1 Chronic pulmonary edema (principal); I48.20 Chronic atrial fibrillation, unspecified; I50.20 Unspecified systolic (congestive) heart failure
CPT/HCPCS: 36415; 85610

== ENCOUNTER 2022-08-17 06:04 | Outpatient (REF) | payer SELFPAY ==
[2022-08-17 06:25] LABS: INTERNATIONAL NORM RATIO 2.2 (0.9-1.1); Prothrombin Time 25.6 SEC (10.0-13.1)
== END 2022-08-17 06:05 | disposition home or self-care (01) ==
LOC: HO.MMNH1L 06:04
PROVIDERS: Visit Provider Family Medicine
DX: J81.1 Chronic pulmonary edema (principal); I48.20 Chronic atrial fibrillation, unspecified; I50.20 Unspecified systolic (congestive) heart failure
CPT/HCPCS: 36415; 85610

== ENCOUNTER 2022-09-07 06:05 | Outpatient (REF) | payer SELFPAY ==
[2022-09-07 06:35] LABS: INTERNATIONAL NORM RATIO 2.6 (0.9-1.1); Prothrombin Time 31.2 SEC (10.0-13.1)
== END 2022-09-07 06:06 | disposition home or self-care (01) ==
LOC: HO.MMNH1L 06:05
PROVIDERS: Visit Provider Family Medicine
DX: J31.1 Chronic nasopharyngitis (principal); I48.20 Chronic atrial fibrillation, unspecified; I50.20 Unspecified systolic (congestive) heart failure
CPT/HCPCS: 36415; 85610

== ENCOUNTER 2022-10-06 06:19 | Outpatient (REF) | payer MEDICARE, SELFPAY ==
[2022-10-06 06:30] LABS: INTERNATIONAL NORM RATIO 2.7 (0.9-1.1); Prothrombin Time 32.9 SEC (10.0-13.1)
== END 2022-10-06 06:20 | disposition home or self-care (01) ==
LOC: HO.MMNH1L 06:19
PROVIDERS: Visit Provider Family Medicine
DX: J81.1 Chronic pulmonary edema (principal); I48.20 Chronic atrial fibrillation, unspecified; I50.20 Unspecified systolic (congestive) heart failure
CPT/HCPCS: 36415; 85610

== ENCOUNTER 2022-10-06 06:20 | Outpatient (REF) | payer MEDICARE, SELFPAY | END 2022-10-06 06:21 | disposition home or self-care (01) | LOC: HO.MMNH1L 06:20 | PROVIDERS: Visit Provider Family Medicine | DX: Z13.89 Encounter for screening for other disorder (principal) ==

== ENCOUNTER 2022-10-12 06:15 | Outpatient (REF) | payer MEDICARE, SELFPAY ==
[2022-10-12 06:21] LABS: INTERNATIONAL NORM RATIO 2.7 (0.9-1.1); Prothrombin Time 31.7 SEC (10.0-13.1)
== END 2022-10-12 06:16 | disposition home or self-care (01) ==
LOC: HO.MMNH1L 06:15
PROVIDERS: Visit Provider Family Medicine
DX: J81.1 Chronic pulmonary edema (principal); I48.20 Chronic atrial fibrillation, unspecified; I50.20 Unspecified systolic (congestive) heart failure
CPT/HCPCS: 36415; 85610

== ENCOUNTER 2022-10-19 06:29 | Outpatient (REF) | payer MEDICARE, SELFPAY ==
[2022-10-19 06:02] LABS: INTERNATIONAL NORM RATIO 2.9 (0.9-1.1); Prothrombin Time 34.5 SEC (10.0-13.1)
== END 2022-10-19 06:30 | disposition home or self-care (01) ==
LOC: HO.MMNH1L 06:29
PROVIDERS: Visit Provider Family Medicine
DX: J81.1 Chronic pulmonary edema (principal); I48.20 Chronic atrial fibrillation, unspecified; I50.20 Unspecified systolic (congestive) heart failure
CPT/HCPCS: 36415; 85610

== ENCOUNTER 2022-10-26 06:00 | Outpatient (REF) | payer MEDICARE, SELFPAY ==
[2022-10-26 07:05] LABS: INTERNATIONAL NORM RATIO 3.1 (0.9-1.1); Prothrombin Time 37.3 SEC (10.0-13.1)
== END 2022-10-26 06:01 | disposition home or self-care (01) ==
LOC: HO.MMNH1L 06:00
PROVIDERS: Visit Provider Family Medicine
DX: J81.1 Chronic pulmonary edema (principal); I48.20 Chronic atrial fibrillation, unspecified; I50.20 Unspecified systolic (congestive) heart failure
CPT/HCPCS: 36415; 85610

== ENCOUNTER 2022-11-02 06:07 | Outpatient (REF) | payer MEDICARE, SELFPAY ==
[2022-11-02 06:32] LABS: INTERNATIONAL NORM RATIO 2.6 (0.9-1.1); Prothrombin Time 30.9 SEC (10.0-13.1)
== END 2022-11-02 06:08 | disposition home or self-care (01) ==
LOC: HO.MMNH1L 06:07
PROVIDERS: Visit Provider Family Medicine
DX: J81.1 Chronic pulmonary edema (principal); I48.20 Chronic atrial fibrillation, unspecified; I50.20 Unspecified systolic (congestive) heart failure
CPT/HCPCS: 36415; 85610

== ENCOUNTER 2022-11-09 06:16 | Outpatient (REF) | payer MEDICARE, SELFPAY ==
[2022-11-09 06:30] LABS: INTERNATIONAL NORM RATIO 3.1 (0.9-1.1); Prothrombin Time 37.3 SEC (10.0-13.1)
== END 2022-11-09 06:17 | disposition home or self-care (01) ==
LOC: HO.MMNH1L 06:16
PROVIDERS: Visit Provider Family Medicine
DX: J81.1 Chronic pulmonary edema (principal); I48.20 Chronic atrial fibrillation, unspecified; I50.20 Unspecified systolic (congestive) heart failure
CPT/HCPCS: 36415; 85610

== ENCOUNTER 2022-11-16 07:15 | Outpatient (REF) | payer MEDICARE, SELFPAY | END 2022-11-16 07:16 | disposition home or self-care (01) | LOC: HO.MMNH1L 07:15 | PROVIDERS: Visit Provider Family Medicine | DX: J81.1 Chronic pulmonary edema (principal); I48.20 Chronic atrial fibrillation, unspecified; I50.20 Unspecified systolic (congestive) heart failure | CPT/HCPCS: 36415; 85610 ==

== ENCOUNTER 2022-11-23 06:13 | Outpatient (REF) | payer MEDICARE, SELFPAY ==
[2022-11-23 06:47] LABS: INTERNATIONAL NORM RATIO 2.5 (0.9-1.1); Prothrombin Time 30.1 SEC (10.0-13.1)
== END 2022-11-23 06:14 | disposition home or self-care (01) ==
LOC: HO.MMNH1L 06:13
PROVIDERS: Visit Provider Family Medicine
DX: J81.1 Chronic pulmonary edema (principal); I48.20 Chronic atrial fibrillation, unspecified; I50.20 Unspecified systolic (congestive) heart failure
CPT/HCPCS: 36415; 85610

== ENCOUNTER 2022-11-30 06:05 | Outpatient (REF) | payer MEDICARE, SELFPAY ==
[2022-11-30 06:50] LABS: INTERNATIONAL NORM RATIO 2.6 (0.9-1.1); Prothrombin Time 31.2 SEC (10.0-13.1)
== END 2022-11-30 06:06 | disposition home or self-care (01) ==
LOC: HO.MMNH1L 06:05
PROVIDERS: Visit Provider Family Medicine
DX: J81.1 Chronic pulmonary edema (principal); I48.20 Chronic atrial fibrillation, unspecified; I50.20 Unspecified systolic (congestive) heart failure
CPT/HCPCS: 36415; 85610

== ENCOUNTER 2022-12-07 06:19 | Outpatient (REF) | payer MEDICARE, SELFPAY ==
[2022-12-07 06:56] LABS: INTERNATIONAL NORM RATIO 2.8 (0.9-1.1); Prothrombin Time 33.8 SEC (11.1-13.3)
== END 2022-12-07 06:20 | disposition home or self-care (01) ==
LOC: HO.MMNH1L 06:19
PROVIDERS: Visit Provider Family Medicine
DX: J81.1 Chronic pulmonary edema (principal); I48.20 Chronic atrial fibrillation, unspecified; I50.20 Unspecified systolic (congestive) heart failure
CPT/HCPCS: 36415; 85610

== ENCOUNTER 2022-12-09 06:06 | Outpatient (REF) | payer MEDICARE, SELFPAY ==
[2022-12-09 06:49] LABS: Appearance Urine Clear; Color Urine Yellow; Glucose Urine UA Negative (Negative); Leukocyte Esterase Urine Negative (Negative); Nitrite Urine Negative (Negative); Urine Blood Negative (Negative); Urine Ketones Negative (Negative); Urine Protein Negative (Neg-Trace)
[2022-12-09 06:54] LABS: Bacteria Urine None Seen (None Seen); Hyaline Casts Urine 0-2 /LPF (0-2); RBC Urine 0-2 /HPF (0-2); Squamous Epithelial Cell Urine 0-2 /HPF (0-2); WBC Urine 0-5 /HPF (0-5)
== END 2022-12-09 06:07 | disposition home or self-care (01) ==
LOC: HO.MMNH1L 06:06
PROVIDERS: Visit Provider Family Medicine
DX: N39.0 Urinary tract infection, site not specified (principal)
CPT/HCPCS: 81001; 87086

== ENCOUNTER 2022-12-14 05:54 | Outpatient (REF) | payer MEDICARE, SELFPAY ==
[2022-12-14 06:07] LABS: INTERNATIONAL NORM RATIO 3.1 (0.9-1.1); Prothrombin Time 37.5 SEC (11.1-13.3)
== END 2022-12-14 05:55 | disposition home or self-care (01) ==
LOC: HO.MMNH1L 05:54
PROVIDERS: Visit Provider Family Medicine
DX: J81.1 Chronic pulmonary edema (principal); I48.20 Chronic atrial fibrillation, unspecified; I50.20 Unspecified systolic (congestive) heart failure
CPT/HCPCS: 36415; 85610

== ENCOUNTER 2022-12-17 05:59 | Outpatient (REF) | payer MEDICARE, SELFPAY ==
[2022-12-17 06:02] LABS: MANUAL DIFF FLAG NO
[2022-12-17 06:37] LABS: Basophils Percent Auto 0.5 % (0-2); Eosinophils Absolute Auto 0.3 X10*3/uL (0.0-0.4); Eosinophils Percent Auto 5.1 % (0-4); Hematocrit 32.2 % (42.0-52.0); Hemoglobin 9.6 g/dl (14.0-18.0); Imm Gran Abs Auto 0.03 X10*3/uL (0.00-0.03); Imm Gran Pct Auto 0.5 % (0.0-0.4); Lymphocytes Absolute Auto 0.4 X10*3/uL (1.2-4.9); Lymphocytes Percent Auto 7.9 % (20-40); Mean Corpuscular HGB Conc 29.8 g/dl (31.0-36.0); Mean Corpuscular Hemoglobin 24.8 pg (27.0-33.0); Mean Corpuscular Volume 83.2 fL (80.0-98.0); Mean Platelet Volume 9.6 fL (9.4-12.4); Monocytes Absolute Auto 0.9 X10*3/uL (0.1-1.2); Monocytes Percent Auto 15.9 % (2-11); Neutrophils Absolute Auto 3.9 x10*3/uL (2.0-8.3); Neutrophils Percent Auto 70.1 % (45-73); Platelet Count 182 X10*3/uL (160-400); Red Blood Count 3.87 X10*6/uL (4.60-5.80); Red Cell Distribution Width 17.5 % (11.0-16.0); White Blood Count 5.5 X10*3/uL (4.8-10.8)
[2022-12-17 06:50] LABS: Anion Gap 12 (12-20); Blood Urea Nitrogen 18 mg/dL (9-16); Calcium 9.2 mg/dL (8.4-10.2); Carbon Dioxide 31 mmol/L (22-29); Chloride 103 mmol/L (96-108); Estimated Glomerular Filt Rate 59; Glucose Random 90 mg/dL (60-115); Potassium 4.1 mmol/L (3.3-5.1); Sodium 142 mmol/L (135-145)
== END 2022-12-17 06:00 | disposition home or self-care (01) ==
LOC: HO.MMNH1L 05:59
PROVIDERS: Visit Provider Family Medicine
DX: M62.59 Muscle wasting and atrophy, not elsewhere classified, multiple sites (principal); J81.1 Chronic pulmonary edema
CPT/HCPCS: 36415; 80048; 85025

== ENCOUNTER 2022-12-21 06:12 | Outpatient (REF) | payer MEDICARE, SELFPAY ==
[2022-12-21 06:50] LABS: INTERNATIONAL NORM RATIO 3.2 (0.9-1.1); Prothrombin Time 39.2 SEC (11.1-13.3)
== END 2022-12-21 06:13 | disposition home or self-care (01) ==
LOC: HO.MMNH1L 06:12
PROVIDERS: Visit Provider Family Medicine
DX: J81.1 Chronic pulmonary edema (principal); I48.20 Chronic atrial fibrillation, unspecified; I50.20 Unspecified systolic (congestive) heart failure
CPT/HCPCS: 36415; 85610

== ENCOUNTER 2022-12-28 06:13 | Outpatient (REF) | payer MEDICARE, SELFPAY ==
[2022-12-28 06:54] LABS: INTERNATIONAL NORM RATIO 3.5 (0.9-1.1); Prothrombin Time 42.3 SEC (11.1-13.3)
== END 2022-12-28 06:14 | disposition home or self-care (01) ==
LOC: HO.MMNH1L 06:13
PROVIDERS: Visit Provider Family Medicine
DX: J81.1 Chronic pulmonary edema (principal); I48.20 Chronic atrial fibrillation, unspecified; I50.20 Unspecified systolic (congestive) heart failure
CPT/HCPCS: 36415; 85610

== ENCOUNTER 2022-12-29 06:28 | Outpatient (REF) | payer MEDICARE, SELFPAY ==
[2022-12-29 06:56] LABS: INTERNATIONAL NORM RATIO 3.6 (0.9-1.1); Prothrombin Time 43.8 SEC (11.1-13.3)
== END 2022-12-29 06:29 | disposition home or self-care (01) ==
LOC: HO.MMNH1L 06:28
PROVIDERS: Visit Provider Family Medicine
DX: I48.91 Unspecified atrial fibrillation (principal); I10 Essential (primary) hypertension
CPT/HCPCS: 36415; 85610

== ENCOUNTER 2022-12-30 06:02 | Outpatient (REF) | payer MEDICARE, SELFPAY ==
[2022-12-30 06:56] LABS: INTERNATIONAL NORM RATIO 2.9 (0.9-1.1); Prothrombin Time 34.9 SEC (11.1-13.3)
== END 2022-12-30 06:03 | disposition home or self-care (01) ==
LOC: HO.MMNH1L 06:02
PROVIDERS: Visit Provider Family Medicine
DX: M62.59 Muscle wasting and atrophy, not elsewhere classified, multiple sites (principal); J81.1 Chronic pulmonary edema; F33.1 Major depressive disorder, recurrent, moderate
CPT/HCPCS: 36415; 85610

== ENCOUNTER 2023-01-04 06:09 | Outpatient (REF) | payer MEDICARE, SELFPAY ==
[2023-01-04 06:46] LABS: INTERNATIONAL NORM RATIO 1.9 (0.9-1.1); Prothrombin Time 23.5 SEC (11.1-13.3)
== END 2023-01-04 06:10 | disposition home or self-care (01) ==
LOC: HO.MMNH1L 06:09
PROVIDERS: Visit Provider Family Medicine
DX: J81.1 Chronic pulmonary edema (principal); I48.20 Chronic atrial fibrillation, unspecified; I50.20 Unspecified systolic (congestive) heart failure
CPT/HCPCS: 36415; 85610

== ENCOUNTER 2023-01-12 06:34 | Outpatient (REF) | payer MEDICARE, SELFPAY ==
[2023-01-12 07:23] LABS: INTERNATIONAL NORM RATIO 1.9 (0.9-1.1); Prothrombin Time 23.3 SEC (11.1-13.3)
== END 2023-01-12 06:35 | disposition home or self-care (01) ==
LOC: HO.MMNH1L 06:34
PROVIDERS: Visit Provider Family Medicine
DX: J81.1 Chronic pulmonary edema (principal); I48.20 Chronic atrial fibrillation, unspecified; I50.20 Unspecified systolic (congestive) heart failure
CPT/HCPCS: 36415; 85610

== ENCOUNTER 2023-01-18 05:58 | Outpatient (REF) | payer MEDICARE, SELFPAY ==
[2023-01-18 06:32] LABS: INTERNATIONAL NORM RATIO 1.8 (0.9-1.1); Prothrombin Time 22.3 SEC (11.1-13.3)
== END 2023-01-18 05:59 | disposition home or self-care (01) ==
LOC: HO.MMNH1L 05:58
PROVIDERS: Visit Provider Family Medicine
DX: J81.1 Chronic pulmonary edema (principal); I48.20 Chronic atrial fibrillation, unspecified; I50.20 Unspecified systolic (congestive) heart failure
CPT/HCPCS: 36415; 85610

== ENCOUNTER 2023-01-20 05:46 | Outpatient (REF) | payer MEDICARE, SELFPAY ==
[2023-01-20 05:48] LABS: MANUAL DIFF FLAG NO
[2023-01-20 06:50] LABS: Appearance Urine Cloudy; Color Urine RED; Glucose Urine UA 100 mg/dL (Negative); Leukocyte Esterase Urine Large (3+) (Negative); Specific Gravity - Urine 1.015 (1.005-1.025); UMIC TRIGGER UA YES; Urine Blood Large (3+) (Negative); Urine Protein 300 (3+) mg/dL (Neg-Trace)
[2023-01-20 06:51] LABS: Basophils Absolute Auto 0.1 X10*3/uL (0.0-0.2); Basophils Percent Auto 0.8 % (0-2); Eosinophils Absolute Auto 0.4 X10*3/uL (0.0-0.4); Eosinophils Percent Auto 6.1 % (0-4); Hematocrit 28.7 % (42.0-52.0); Hemoglobin 8.5 g/dl (14.0-18.0); Imm Gran Abs Auto 0.03 X10*3/uL (0.00-0.03); Imm Gran Pct Auto 0.5 % (0.0-0.4); Lymphocytes Absolute Auto 0.6 X10*3/uL (1.2-4.9); Lymphocytes Percent Auto 9.7 % (20-40); Mean Corpuscular HGB Conc 29.6 g/dl (31.0-36.0); Mean Corpuscular Hemoglobin 24.4 pg (27.0-33.0); Mean Corpuscular Volume 82.2 fL (80.0-98.0); Mean Platelet Volume 9.9 fL (9.4-12.4); Monocytes Absolute Auto 0.9 X10*3/uL (0.1-1.2); Monocytes Percent Auto 13.7 % (2-11); Neutrophils Absolute Auto 4.4 x10*3/uL (2.0-8.3); Neutrophils Percent Auto 69.2 % (45-73); Platelet Count 187 X10*3/uL (160-400); Red Blood Count 3.49 X10*6/uL (4.60-5.80); Red Cell Distribution Width 17.5 % (11.0-16.0); White Blood Count 6.3 X10*3/uL (4.8-10.8)
[2023-01-20 07:02] LABS: INTERNATIONAL NORM RATIO 1.4 (0.9-1.1); Prothrombin Time 17.6 SEC (11.1-13.3)
[2023-01-20 07:27] LABS: Bacteria Urine 4+ (None Seen); RBC Urine >20 /HPF (0-2); Squamous Epithelial Cell Urine 0-2 /HPF (0-2); WBC Urine >50 /HPF (0-5)
== END 2023-01-20 05:47 | disposition home or self-care (01) ==
LOC: HO.MMNH1L 05:46
PROVIDERS: Visit Provider Family Medicine
DX: R31.9 Hematuria, unspecified (principal); I48.91 Unspecified atrial fibrillation
CPT/HCPCS: 36415; 81001; 85025; 85610; 87086; 87088; 87186

== ENCOUNTER 2023-01-22 15:16 | Outpatient (REF) | payer MEDICARE, SELFPAY ==
[2023-01-22 16:31] LABS: INTERNATIONAL NORM RATIO 1.2 (0.9-1.1); Prothrombin Time 14.4 SEC (11.1-13.3)
== END 2023-01-22 15:17 | disposition home or self-care (01) ==
LOC: HO.MMNH1L 15:16
PROVIDERS: Visit Provider Family Medicine
DX: I48.91 Unspecified atrial fibrillation (principal)
CPT/HCPCS: 36415; 85610

== ENCOUNTER 2023-01-25 07:10 | Outpatient (REF) | payer MEDICARE, SELFPAY ==
[2023-01-25 06:38] LABS: INTERNATIONAL NORM RATIO 1.4 (0.9-1.1); Prothrombin Time 16.6 SEC (11.1-13.3)
== END 2023-01-25 07:11 | disposition home or self-care (01) ==
LOC: HO.MMNH1L 07:10
PROVIDERS: Visit Provider Family Medicine
DX: J81.1 Chronic pulmonary edema (principal); I48.20 Chronic atrial fibrillation, unspecified; I50.20 Unspecified systolic (congestive) heart failure
CPT/HCPCS: 36415; 85610

== ENCOUNTER 2023-01-28 05:41 | Outpatient (REF) | payer MEDICARE, SELFPAY ==
[2023-01-28 06:05] LABS: INTERNATIONAL NORM RATIO 1.9 (0.9-1.1); Prothrombin Time 22.6 SEC (11.1-13.3)
== END 2023-01-28 05:42 | disposition home or self-care (01) ==
LOC: HO.MMNH1L 05:41
PROVIDERS: Visit Provider Family Medicine
DX: I48.91 Unspecified atrial fibrillation (principal)
CPT/HCPCS: 36415; 85610

== ENCOUNTER 2023-02-01 06:10 | Outpatient (REF) | payer MEDICARE, SELFPAY ==
[2023-02-01 07:21] LABS: INTERNATIONAL NORM RATIO 2.8 (0.9-1.1); Prothrombin Time 34.3 SEC (11.1-13.3)
== END 2023-02-01 06:11 | disposition home or self-care (01) ==
LOC: HO.MMNH1L 06:10
PROVIDERS: Visit Provider Family Medicine
DX: J81.1 Chronic pulmonary edema (principal); I48.20 Chronic atrial fibrillation, unspecified; I50.20 Unspecified systolic (congestive) heart failure
CPT/HCPCS: 36415; 85610

== ENCOUNTER 2023-02-08 06:32 | Outpatient (REF) | payer MEDICARE, SELFPAY ==
[2023-02-08 07:06] LABS: INTERNATIONAL NORM RATIO 4.5 (0.9-1.1); Prothrombin Time 54.4 SEC (11.1-13.3)
== END 2023-02-08 06:33 | disposition home or self-care (01) ==
LOC: HO.MMNH1L 06:32
PROVIDERS: Visit Provider Family Medicine
DX: J81.1 Chronic pulmonary edema (principal); I48.20 Chronic atrial fibrillation, unspecified; I50.20 Unspecified systolic (congestive) heart failure
CPT/HCPCS: 36415; 85610

== ENCOUNTER 2023-02-10 05:49 | Outpatient (REF) | payer MEDICARE, SELFPAY ==
[2023-02-10 06:11] LABS: INTERNATIONAL NORM RATIO 3.3 (0.9-1.1); Prothrombin Time 39.7 SEC (11.1-13.3)
== END 2023-02-10 05:50 | disposition home or self-care (01) ==
LOC: HO.MMNH1L 05:49
PROVIDERS: Visit Provider Family Medicine
DX: M62.59 Muscle wasting and atrophy, not elsewhere classified, multiple sites (principal); J81.1 Chronic pulmonary edema; F33.1 Major depressive disorder, recurrent, moderate
CPT/HCPCS: 36415; 85610

== ENCOUNTER 2023-02-15 06:14 | Outpatient (REF) | payer MEDICARE, SELFPAY ==
[2023-02-15 06:20] LABS: INTERNATIONAL NORM RATIO 2.7 (0.9-1.1); Prothrombin Time 33.4 SEC (11.1-13.3)
== END 2023-02-15 06:15 | disposition home or self-care (01) ==
LOC: HO.MMNH1L 06:14
PROVIDERS: Visit Provider Family Medicine
DX: J81.1 Chronic pulmonary edema (principal); I48.20 Chronic atrial fibrillation, unspecified; I50.20 Unspecified systolic (congestive) heart failure
CPT/HCPCS: 36415; 85610

== ENCOUNTER 2023-02-18 05:32 | Outpatient (REF) | payer MEDICARE, SELFPAY ==
[2023-02-18 07:00] LABS: Appearance Urine Clear; Color Urine Yellow; Glucose Urine UA Negative (Negative); Leukocyte Esterase Urine Negative (Negative); Nitrite Urine Negative (Negative); Urine Blood Negative (Negative); Urine Ketones Negative (Negative); Urine Protein Negative (Neg-Trace)
[2023-02-18 07:37] LABS: Bacteria Urine None Seen (None Seen); RBC Urine 0-2 /HPF (0-2); Squamous Epithelial Cell Urine 0-2 /HPF (0-2); WBC Urine 0-5 /HPF (0-5)
== END 2023-02-18 05:33 | disposition home or self-care (01) ==
LOC: HO.MMNH1L 05:32
PROVIDERS: Visit Provider Family Medicine
DX: R82.90 Unspecified abnormal findings in urine (principal)
CPT/HCPCS: 81001

== ENCOUNTER 2023-02-22 06:35 | Outpatient (REF) | payer MEDICARE, SELFPAY ==
[2023-02-22 07:20] LABS: INTERNATIONAL NORM RATIO 1.9 (0.9-1.1); Prothrombin Time 23.5 SEC (11.1-13.3)
== END 2023-02-22 06:36 | disposition home or self-care (01) ==
LOC: HO.MMNH1L 06:35
PROVIDERS: Visit Provider Family Medicine
DX: J81.1 Chronic pulmonary edema (principal); I48.20 Chronic atrial fibrillation, unspecified; I50.20 Unspecified systolic (congestive) heart failure
CPT/HCPCS: 36415; 85610

== ENCOUNTER 2023-03-01 06:12 | Outpatient (REF) | payer MEDICARE, SELFPAY ==
[2023-03-01 06:45] LABS: INTERNATIONAL NORM RATIO 1.6 (0.9-1.1)
== END 2023-03-01 06:13 | disposition home or self-care (01) ==
LOC: HO.MMNH1L 06:12
PROVIDERS: Visit Provider Family Medicine
DX: I48.20 Chronic atrial fibrillation, unspecified (principal); I50.20 Unspecified systolic (congestive) heart failure; J81.1 Chronic pulmonary edema
CPT/HCPCS: 36415; 85610

== ENCOUNTER 2023-03-08 06:16 | Outpatient (REF) | payer MEDICARE, SELFPAY ==
[2023-03-08 07:07] LABS: INTERNATIONAL NORM RATIO 1.7 (0.9-1.1); Prothrombin Time 20.9 SEC (11.1-13.3)
== END 2023-03-08 06:17 | disposition home or self-care (01) ==
LOC: HO.MMNH1L 06:16
PROVIDERS: Visit Provider Family Medicine
DX: Z13.89 Encounter for screening for other disorder (principal)
CPT/HCPCS: 36415; 85610

== ENCOUNTER 2023-03-15 07:51 | Outpatient (REF) | payer MEDICARE, SELFPAY ==
[2023-03-15 07:06] LABS: INTERNATIONAL NORM RATIO 1.8 (0.9-1.1); Prothrombin Time 21.9 SEC (11.1-13.3)
== END 2023-03-15 07:52 | disposition home or self-care (01) ==
LOC: HO.MMNH1L 07:51
PROVIDERS: Visit Provider Family Medicine
DX: J81.1 Chronic pulmonary edema (principal); I48.20 Chronic atrial fibrillation, unspecified; I50.20 Unspecified systolic (congestive) heart failure
CPT/HCPCS: 36415; 85610

== ENCOUNTER 2023-03-22 06:29 | Outpatient (REF) | payer MEDICARE, SELFPAY ==
[2023-03-22 06:51] LABS: Prothrombin Time 24.4 SEC (11.1-13.3)
== END 2023-03-22 06:30 | disposition home or self-care (01) ==
LOC: HO.MMNH1L 06:29
PROVIDERS: Visit Provider Family Medicine
DX: J81.1 Chronic pulmonary edema (principal); I48.20 Chronic atrial fibrillation, unspecified; I50.20 Unspecified systolic (congestive) heart failure
CPT/HCPCS: 36415; 85610

== ENCOUNTER 2023-03-29 06:49 | Outpatient (REF) | payer MEDICARE, SELFPAY ==
[2023-03-29 07:08] LABS: INTERNATIONAL NORM RATIO 2.7 (0.9-1.1); Prothrombin Time 33.1 SEC (11.1-13.3)
== END 2023-03-29 06:50 | disposition home or self-care (01) ==
LOC: HO.MMNH1L 06:49
PROVIDERS: Visit Provider Family Medicine
DX: J81.1 Chronic pulmonary edema (principal); I48.20 Chronic atrial fibrillation, unspecified; I50.20 Unspecified systolic (congestive) heart failure
CPT/HCPCS: 36415; 85610

== ENCOUNTER 2023-04-05 06:30 | Outpatient (REF) | payer MEDICARE, SELFPAY ==
[2023-04-05 07:09] LABS: Prothrombin Time 24.7 SEC (11.1-13.3)
== END 2023-04-05 06:31 | disposition home or self-care (01) ==
LOC: HO.MMNH1L 06:30
PROVIDERS: Visit Provider Family Medicine
DX: J81.1 Chronic pulmonary edema (principal); I48.20 Chronic atrial fibrillation, unspecified; I50.20 Unspecified systolic (congestive) heart failure
CPT/HCPCS: 36415; 85610

== ENCOUNTER 2023-04-12 07:20 | Outpatient (REF) | payer MEDICARE, SELFPAY ==
[2023-04-12 07:05] LABS: INTERNATIONAL NORM RATIO 1.8 (0.9-1.1); Prothrombin Time 21.4 SEC (11.1-13.3)
[2023-04-12 07:26] LABS: Magnesium 2.3 mg/dL (1.6-2.6)
== END 2023-04-12 07:21 | disposition home or self-care (01) ==
LOC: HO.MMNH1L 07:20
PROVIDERS: Visit Provider Family Medicine
DX: J81.1 Chronic pulmonary edema (principal); I48.20 Chronic atrial fibrillation, unspecified; I50.20 Unspecified systolic (congestive) heart failure
CPT/HCPCS: 36415; 80162; 83735; 85610

== ENCOUNTER 2023-04-19 07:16 | Outpatient (REF) | payer MEDICARE, SELFPAY ==
[2023-04-19 06:26] LABS: INTERNATIONAL NORM RATIO 2.8 (0.9-1.1); Prothrombin Time 33.9 SEC (11.1-13.3)
== END 2023-04-19 07:17 | disposition home or self-care (01) ==
LOC: HO.MMNH1L 07:16
PROVIDERS: Visit Provider Family Medicine
DX: J81.1 Chronic pulmonary edema (principal); I48.20 Chronic atrial fibrillation, unspecified; I50.20 Unspecified systolic (congestive) heart failure
CPT/HCPCS: 36415; 85610

== ENCOUNTER 2023-04-26 06:22 | Outpatient (REF) | payer MEDICARE, SELFPAY ==
[2023-04-26 07:06] LABS: INTERNATIONAL NORM RATIO 2.1 (0.9-1.1); Prothrombin Time 26.1 SEC (11.1-13.3)
== END 2023-04-26 06:23 | disposition home or self-care (01) ==
LOC: HO.MMNH1L 06:22
PROVIDERS: Visit Provider Family Medicine
DX: J81.1 Chronic pulmonary edema (principal); I48.20 Chronic atrial fibrillation, unspecified; I50.20 Unspecified systolic (congestive) heart failure
CPT/HCPCS: 36415; 85610